=== PATIENT | male | born 2000 | race Caucasian/White ===

== ENCOUNTER 2019-11-17 17:30 | Emergency (ER) | payer OTHER ==
[2019-11-17] MEDS ORDERED: Sodium Chloride 0.9% 1,000 ML IV ONE ×2 (17:42→21:35)
[2019-11-17] MEDS ORDERED: Sodium Chloride 0.9% 10 ML Syringe FLUSH PRN (17:42)
--- NOTE | 2019-11-17 17:46 | EDM.PDOC ---
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 Driving back to the [facility] had food and maintained some intake with fluid. Arrived in [place] [address] again and shortly thereafter while driving home experienced emesis. States minimal insulin use over the weekend as he was very active on [employer] 8 to 10 hours/day. Acknowledges beverages, along with heat that may have contributed to dehydration. Blood sugars have been slightly higher today as he needs to change his pump site which was done after his arrival in the emergency department. Denies any extraneous food or drinks that may have precipitated nausea vomiting. Has had no exposures to illness that he is aware of. 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 Associated tachycardia and breathing issue stating he could not catch his breath along with mild abdominal discomfort attributed to nausea and emesis. Bowel movement x2 today which she states was normal states his urine has been clear. 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 Chest Pain Score (Numeric/FACES): 4 Abdomen Pain Score (Numeric/FACES): 2 - Related Data Allergies Allergy/AdvReac Type Severity Reaction Status Date / Time No Known Allergies Allergy Verified 11/17/19 18:07 Past Medical History Cardiovascular History: Reports: None Respiratory History: Reports: None Gastrointestinal History: Reports: None Endocrine/Metabolic History: Reports: Diabetes, Type I 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 Type of Insulin Used in Pump: Novalog When was Your Last Insulin Site/Set Changed: Now after arrival in ED Do You Have Enough Pump Supplies for Your Hospital Stay: Yes Who Manages Your Pump: Patient (Self) Who Medically Manages Your Pump (Provider): Colt German Basal Rate (Units/hr): Basal Rate (Time/Rate)Midnight 2.00 Units of Insulin Per Gram of Carbohydrates:: 3 Do You Give Correction Boluses or Sliding Scale: Yes Patient/Family Able to Supply Written Copy of Sliding Scale: Yes Hematologic History: Reports: None Immunologic History: Reports: None Oncologic (Cancer) History: Reports: None Dermatologic History: Reports: None - Past Surgical History Head Surgeries/Procedures: Reports: None HEENT Surgical History: Reports: None Cardiovascular Surgical History: Reports: None Respiratory Surgical History: Reports: None GI Surgical History: Reports: None Female Surgical History: Reports: None Male Surgical History: Reports: None Endocrine Surgical History: Reports: None Neurological Surgical History: Reports: None Musculoskeletal Surgical History: Reports: None Oncologic Surgical History: Reports: None Dermatological Surgical History: Reports: None - Past Imaging History Past Imaging History: Reports: MRI, Xray Social & Family History - Family History Family Medical History: Noncontributory - Tobacco Use Smoking Status *Q: Never Smoker Tobacco Use Within Last Twelve Months: Snuff/Dip Used Tobacco, but Quit: No Second Hand Smoke Exposure: No Second Hand Smoke Education Provided: No - Tobacco Core Measures Smokeless Tobacco Use History: Snuff/Dip - Caffeine Use Caffeine Use: Reports: Soda - Alcohol Use Alcohol Use History: Yes Alcohol Use Frequency: Rarely - Recreational Drug Use Recreational Drug Use: No ED ROS GENERAL - Review of Systems Review Of Systems: See Below Constitutional: Reports: No Symptoms HEENT: Reports: No Symptoms Respiratory: Reports: Shortness of Breath Cardiovascular: Reports: Dyspnea on Exertion Endocrine: Reports: High Glucose GI/Abdominal: Reports: Nausea, Vomiting : Reports: No Symptoms Musculoskeletal: Reports: Neck Pain (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), Shoulder Pain (Exacerbation of chronic) Skin: Reports: No Symptoms Neurological: Reports: No Symptoms Psychiatric: Reports: No Symptoms Hematologic/Lymphatic: Reports: No Symptoms Immunologic: Reports: No Symptoms ED EXAM, GENERAL - Physical Exam Exam: See Below General Appearance: Alert, WD/WN, No Apparent Distress, Anxious Ears: Normal External Exam, Normal Canal, Hearing Grossly Normal, Normal TMs Nose: Normal Inspection, Normal Mucosa, No Blood Throat/Mouth: Normal Inspection, Normal Lips, Normal Teeth, Normal Gums, Normal Oropharynx, Normal Voice, No Airway Compromise Head: Atraumatic, Normocephalic Neck: Normal Inspection, Supple, Full Range of Motion, Tender Lateral Respiratory/Chest: Lungs Clear, Normal Breath Sounds, Chest Non-Tender Cardiovascular: Normal Peripheral Pulses, Regular Rate, Rhythm, No Edema, No Gallop, No JVD, No Murmur, No Rub, Tachycardia GI/Abdominal: Normal Bowel Sounds, Soft, Distended (Tension at his chronically used insulin pump sites left and right lower abdomen), Rebound, Tender. No: Guarding, Rigid (Male) Exam: Deferred Rectal (Males) Exam: Deferred Back Exam: Full Range of Motion Extremities: Normal Inspection, Normal Range of Motion, Non-Tender, No Pedal Edema Neurological: Alert, Oriented, CN II-XII Intact, Normal Cognition, Normal Gait, Normal Reflexes, No Motor/Sensory Deficits Psychiatric: Normal Affect, Normal Mood Skin Exam: Warm, Dry, Intact, Normal Color, No Rash EKG INTERPRETATION EKG Date: 11/17/19 Time: 17:45 Rhythm: NSR Rate (Beats/Min): 119 [place]: Normal P-Wave: Present QRS: Normal ST-T: Normal QT: Normal Comparison: NA - No Prior EKG EKG Interpretation Comments: Sinus tachycardia with no evidence of infarct nor ischemia Course - Vital Signs Last Recorded V/S: Last Vital Signs Temp 36.4 C 11/17/19 17:57 Pulse 125 H 11/17/19 17:57 Resp 26 H 11/17/19 17:57 BP 153/59 H 11/17/19 17:57 Pulse Ox 97 11/17/19 17:57 - Orders/Labs/Meds Orders: Active Orders 24 hr Category Date Time Status Blood Glucose Check, Bedside [RC] ONETIME Care 11/17/19 18:54 Ordered Blood Glucose Check, Bedside [RC] ONETIME Care 11/17/19 19:29 Ordered EKG Documentation Completion [RC] ASDIRECTED Care 11/17/19 17:40 Ordered Peripheral IV Care [RC] . DIRECTED Care 11/17/19 17:42 Active Abdomen Pelvis w Cont [CT] Stat Exams 11/17/19 18:31 Ordered Sodium Chloride 0.9% [Normal Saline] 50 ml Med 11/17/19 18:45 Active IV ASDIRECTED Sodium Chloride 0.9% [Saline Flush] Med 11/17/19 17:42 Ordered 10 ml FLUSH Q8HR PRN Peripheral IV Insertion Adult [OM.PC] Routine Oth 11/17/19 17:42 Ordered EKG 12 Lead [EK] Stat Ther 11/17/19 17:40 Ordered Medication Orders Sodium Chloride (Normal Saline) 50 mls @ 200 mls/min IV ASDIRECTED DWAINE Sodium Chloride (Saline Flush) 10 ml FLUSH Q8HR PRN PRN Reason: keep vein open Labs: Laboratory Tests 11/17/19 11/17/19 11/17/19 Range/Units 15:30 15:30 18:40 WBC 17.59 H (5.00-10.00) 10^3/uL RBC 5.52 (4.50-6.00) 10^6/uL Hgb 16.0 (13.0-17.0) g/dL Hct 47.7 (40.0-52.0) % MCV 86.4 (82.0-92.0) fL MCH 29.0 (27.0-31.0) pg MCHC 33.5 (32.0-36.0) g/dL RDW 12.0 (11.5-14.5) % Plt Count 418 H (150-400) 10^3/uL MPV 10.4 (7.4-10.4) fL Immature Gran % (Auto) 0.7 (0.0-5.0) % Neut % (Auto) 79.0 H (50.0-70.0) % Lymph % (Auto) 12.4 L (20.0-40.0) % [place] % (Auto) 7.0 (2.0-8.0) % Eos % (Auto) 0.3 L (1.0-3.0) % Baso % (Auto) 0.6 (0.0-1.0) % Neut # (Auto) 13.89 H (2.50-7.00) 10^3/uL Lymph # (Auto) 2.18 (1.00-4.00) 10^3/uL [place] # (Auto) 1.24 H (0.10-0.80) 10^3/uL Eos # (Auto) 0.05 L (0.10-0.30) 10^3/uL Baso # (Auto) 0.10 (0.00-0.10) 10^3/uL Immature Gran # (Auto) 0.13 (0.00-0.50) 10^3/uL Sodium 129 L (136-145) mmol/L Potassium 5.1 (3.3-5.3) mmol/L Chloride 90 L (98-115) mmol/L Carbon Dioxide 10.3 L (21.0-32.0) mmol/L Anion Gap 33.8 H (5-15) mmol/L BUN 17 (6-25) mg/dL Creatinine 1.06 (0.51-1.17) mg/dL Est Cr Clr Drug Dosing 122.01 mL/min Estimated GFR (MDRD) > 60 mL/min Glucose 550 H (75 - 99) mg/dL Calcium 9.2 (8.7-10.3) mg/dL Total Bilirubin 1.5 H (0.2-1.0) mg/dL AST 17 (15-37) U/L ALT 27 (12-78) U/L Alkaline Phosphatase 133 H (46-116) IU/L Creatine Kinase 123 (26-276) U/L CK-MB (CK-2) 1.00 (0.00-4.30) ng/mL Troponin I 0.07 (0.00-0.070) ng/mL Total Protein 8.4 H (6.4-8.2) g/dL Albumin 4.45 (3.00-4.80) g/dL Amylase 36 (25-125) U/L Lipase 29 L (73-393) U/L Specimen Type . Urine Color Light yellow (YELLOW) Urine Appearance Clear (CLEAR) Urine pH 5.0 (5.0-9.0) Ur Specific [place] >= 1.030 (1.005-1.030) Urine Protein 30 H (NEGATIVE) mg/dL Urine Glucose (UA) 500 H (NEGATIVE) mg/dL Urine Ketones >=160 H (NEGATIVE) mg/dL Urine Occult Blood Trace-lysed H (NEGATIVE) Urine Nitrite Negative (NEGATIVE) Urine Bilirubin Negative (NEGATIVE) Urine Urobilinogen 0.2 (0.2-1.0) E.U./dL Ur Leukocyte Esterase Negative (NEGATIVE) Urine RBC 0-5 (0-5) /HPF Urine WBC 0-5 (0-5) /HPF Ur Epithelial Cells Occasional /LPF Urine Bacteria Rare (NONE TO FEW) /HPF Ethyl Alcohol < 3 (NONE DETECTED) mg/dL Meds: Medications Generic Name Dose Route Start Last Admin Trade Name Santiago PRN Reason Stop Dose Admin Sodium Chloride 50 mls @ 200 mls/min 11/17/19 18:45 Normal Saline IV ASDIRECTED DWAINE Sodium Chloride 10 ml 11/17/19 17:42 Saline Flush FLUSH Q8HR PRN keep vein open Discontinued Medications Generic Name Dose Route Start Last Admin Trade Name Santiago PRN Reason Stop Dose Admin Sodium Chloride 1,000 mls @ 999 mls/hr 11/17/19 17:42 11/17/19 17:45 Normal Saline IV 11/17/19 18:42 999 mls/hr .BOLUS ONE Administration Meropenem 1 gm/ Sodium 100 mls @ 200 mls/hr 11/17/19 18:45 11/17/19 19:20 Chloride IV 11/17/19 19:14 200 mls/hr ONETIME ONE Administration Insulin Human Regular 15 unit 11/17/19 18:34 11/17/19 18:44 Humulin R IV 11/17/19 18:35 15 units ONETIME ONE Administration Insulin Human Regular 15 unit 11/17/19 19:31 Humulin R IV 11/17/19 19:32 ONETIME ONE Iopamidol 100 ml 11/17/19 18:42 Isovue-370 (76%) IV 11/17/19 18:43 ONETIME ONE Ondansetron HCl 8 mg 11/17/19 18:38 11/17/19 19:15 Zofran IVPUSH 11/17/19 18:39 8 mg ONETIME ONE Administration - Re-Assessments/Exams Free Text/Narrative Re-Assessment/Exam: 11/17/19 18:43 After receiving some IV fluid and returning from x-ray abdomen was reexamined to find more accurate right lower quadrant pain with rebound tenderness. Advised the likelihood of acute appendicitis and would be performing CT with IV contrast. Will provide medication for nausea at this time continuing fluids 1 g meropenem will be implemented with a significant elevation in his white count with abdominal discomfort. Free Text/Narrative Re-Assessment/Exam: 11/17/19 20:15 CT abdomen pelvis with IV contrast returns negative with no evidence of appendicitis. Case was discussed with Maxi Garcia, after discussion with Harish and his mother over the fact CT was negative for acute appendicitis. 3 is coverage of antibiotic and insulin for improvement of blood sugars with IV fluids as appropriate and will be admitting. Repeat glucose at this time was 294. Departure - Departure Time of Disposition: 20:19 Disposition: Admitted As Inpatient 65 Condition: Good Clinical Impression: Elevated glucose level, Nausea, Right lower quadrant abdominal pain, Tachycardia, Electrolyte abnormality, Glucosuria - Discharge Information *PRESCRIPTION DRUG MONITORING PROGRAM REVIEWED*: Not Applicable *COPY OF PRESCRIPTION DRUG MONITORING REPORT IN PATIENT STEPHEN: Not Applicable Forms: ED Department Discharge Sepsis Event Note (ED) - Focused Exam Vital Signs: Vital Signs Temp Pulse Resp BP Pulse Ox 11/17/19 17:57 36.4 C 125 H 26 H 153/59 H 97 ED Communication - ED Communication Date/Time Date: 11/17/19 Time Called: 20:05 - Discussed Case With (1) Discussed Case With (1): Admitting Provider Person/s Notified (1): Swapna Reed (agrees to admission) - Conversation Summary Admitting Provider Agreed to Patient's Admission: Yes - Problem List & Annotations (1) Tachycardia SNOMED Code(s): 3767777 Code(s): R00.0 - TACHYCARDIA, UNSPECIFIED Status: Acute (2) Nausea SNOMED Code(s): 272914790 Code(s): R11.0 - NAUSEA Status: Acute (3) Elevated glucose level SNOMED Code(s): 79803397 Code(s): R73.09 - OTHER ABNORMAL GLUCOSE Status: Acute (4) SOB (shortness of breath) on exertion SNOMED Code(s): 64088358 Code(s): R06.02 - SHORTNESS OF BREATH Status: Acute (5) Right lower quadrant abdominal pain SNOMED Code(s): 859147465 Code(s): R10.31 - RIGHT LOWER QUADRANT PAIN Status: Acute (6) Electrolyte abnormality SNOMED Code(s): 106995023 Code(s): E87.8 - OTH DISORDERS OF ELECTROLYTE AND FLUID BALANCE, NEC Status : Acute Priority: High (7) Glucosuria SNOMED Code(s): 24952648 Code(s): R81 - GLYCOSURIA Status: Acute Priority: High - Problem List Review Problem List Initiated/Reviewed/Updated: Yes - My Orders Last 24 Hours: My Active Orders 11/17/19 17:40 EKG Documentation Completion [RC] ASDIRECTED EKG 12 Lead [EK] Stat 11/17/19 17:42 Peripheral IV Care [RC] . DIRECTED Sodium Chloride 0.9% [Saline Flush] 10 ml FLUSH Q8HR PRN Peripheral IV Insertion Adult [OM.PC] Routine 11/17/19 18:31 Abdomen Pelvis w Cont [CT] Stat 11/17/19 18:45 Sodium Chloride 0.9% [Normal Saline] 50 ml IV ASDIRECTED 11/17/19 18:54 Blood Glucose Check, Bedside [RC] ONETIME 11/17/19 19:29 Blood Glucose Check, Bedside [RC] ONETIME - Assessment/Plan Last 24 Hours: My Active Orders 11/17/19 17:40 EKG Documentation Completion [RC] ASDIRECTED EKG 12 Lead [EK] Stat 11/17/19 17:42 Peripheral IV Care [RC] . DIRECTED Sodium Chloride 0.9% [Saline Flush] 10 ml FLUSH Q8HR PRN Peripheral IV Insertion Adult [OM.PC] Routine 11/17/19 18:31 Abdomen Pelvis w Cont [CT] Stat 11/17/19 18:45 Sodium Chloride 0.9% [Normal Saline] 50 ml IV ASDIRECTED 11/17/19 18:54 Blood Glucose Check, Bedside [RC] ONETIME 11/17/19 19:29 Blood Glucose Check, Bedside [RC] ONETIME
[2019-11-17 18:15] LABS: ANION GAP 33.8 mmol/L (5-15); CHLORIDE,CL 90 mmol/L (98-115); SODIUM,NA 129 mmol/L (136-145)
[2019-11-17] MEDS ORDERED: Insulin Regular, Human 100 Units/ML 10 ML Vial IV ONE ×2 (18:34→19:31)
[2019-11-17] MEDS ORDERED: Ondansetron 4 MG/2 ML SDV IVPUSH ONE (18:38)
[2019-11-17] MEDS ORDERED: Iopamidol 755 Mg/ML 100 ML Bottle IV ONE (18:42)
[2019-11-17] MEDS ORDERED: Meropenem 1 GM in Sodium Chloride 0.9% 100 ML IV ONE (18:45)
[2019-11-17] MEDS ORDERED: Sodium Chloride 0.9% 50 ML IV SCH (18:45)
--- NOTE | 2019-11-17 18:56 | CR ---
[id number] RAD/RAD Abdomen Upright Exam: RAD Abdomen Upright Clinical Data: VOMITING COMPARISON: NO PREVIOUS SIMILAR EXAM IS AVAILABLE FINDINGS: There is no bowel obstruction or free air There is no organomegaly or pathologic calcification IMPRESSION: NO ACUTE PLAIN FILM ABNORMALITY Osmar Calderon MD 11/17/19 9611 Thank you for allowing us to participate in the care of your patient.
--- NOTE | 2019-11-17 18:58 | CR ---
[id number] RAD/RAD Chest PA And Lateral EXAM: RAD Chest PA And Lateral CLINICAL DATA: SHORTNESS OF BREATH COMPARISON: NO PREVIOUS SIMILAR EXAM IS AVAILABLE. FINDINGS: The lungs are clear There is peribronchial thickening There are minimal wedge deformities of the thoracic spine The cardiac silhouette is normal IMPRESSION: NO ACUTE PROCESS. Osmar Calderon MD 11/17/19 [id number] Thank you for allowing us to participate in the care of your patient.
--- NOTE | 2019-11-17 19:47 | CT ---
[id number] CT/CT Abdomen Pelvis W IV EXAM: CT Abdomen Pelvis W IV CLINICAL DATA: RIGHT LOWER QUADRANT PAIN ELEVATED WHITE BLOOD CELL COUNT COMPARISON: No previous similar exam is available. FINDINGS: The liver and spleen are unremarkable. The kidneys and adrenals show no abnormality. The aorta and pancreas are within normal limits. There is no bowel distention. There is no bowel wall thickening either. There is no free fluid or free air. There is no adenopathy. The pelvis shows no mass, free fluid, abscess, inflammatory change, or adenopathy. IMPRESSION: NO EVIDENCE OF APPENDICITIS Osmar Calderon MD 11/17/19 1946 Thank you for allowing us to participate in the care of your patient.
[2019-11-17 22:00] LABS: O2 DELIVERY DEVICE ROOM AIR
[2019-11-17 22:01] LABS: PCO2 ARTERIAL 16 mmHG (35-45); PO2 ARTERIAL 116 mmHG (80-105)
[2019-11-17 22:02] LABS: BASE EXCESS ARTERIAL -19 mmol/L (-2-3); BICARBONATE,ARTERIAL 7.6 mmol/L (22-26); O2 SATURATION ARTERIAL 98 % (95-98)
[2019-11-17 22:18] LABS: ANION GAP 32.6 mmol/L (5-15); CHLORIDE,CL 98 mmol/L (98-115); SODIUM,NA 136 mmol/L (136-145)
== END 2019-11-17 22:50 | disposition critical access hospital (66) ==
LOC: KA.ED 17:30 → UNDOADMOB 20:20 → KA.MS 20:20 → UNDOADMOB 20:32
DX: E10.65 Type 1 diabetes mellitus with hyperglycemia (principal); R00.0 Tachycardia, unspecified; R81 Glycosuria; R10.31 Right lower quadrant pain; E87.8 Other disorders of electrolyte and fluid balance, not elsewhere classified; F17.290 Nicotine dependence, other tobacco product, uncomplicated
CPT/HCPCS: 36415; 36600; 71046; 74021; 74177; 80048; 80053; 80307; 81001; 82150; 82550; 82553; 82803; 82962; 83690; 84484; 85025; 93005; 96361; 96365; 96375; 99285-25; J2185; J2405; J7030; J7050; Q9967

== ENCOUNTER 2020-11-29 13:05 | Emergency (ER) | payer OTHER ==
--- NOTE | 2020-11-29 13:27 | EDM.PDOC ---
ED HPI GENERAL MEDICAL PROBLEM - General Chief Complaint: Skin Complaint Stated Complaint: SWALLOWED HYDRAULIC FLUID Time Seen by Provider: 11/29/20 13:23 Source of Information: Reports: Patient History Limitations: Reports: No Limitations - History of Present Illness INITIAL COMMENTS - FREE TEXT/NARRATIVE: Harish, 20-year-old male, today while plugging in an apparatus to his tractor which had no reason for pressure, pushed out to hydraulic fluid onto his body, his face, some of which got in his mouth. Has had no other injuries and was not in a pressure/high pressure situation causing any penetration. Topical exposure only. Denies any other injuries. 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 Hematologic History: Reports: None Immunologic History: Reports: None Oncologic (Cancer) History: Reports: None Dermatologic History: Reports: None - Past Surgical History Head Surgeries/Procedures: Reports: None HEENT Surgical History: Reports: None Cardiovascular Surgical History: Reports: None Respiratory Surgical History: Reports: None GI Surgical History: Reports: None Female Surgical History: Reports: None Male Surgical History: Reports: None Endocrine Surgical History: Reports: None Neurological Surgical History: Reports: None Musculoskeletal Surgical History: Reports: None Oncologic Surgical History: Reports: None Dermatological Surgical History: Reports: None - Past Imaging History Past Imaging History: Reports: MRI, Xray Social & Family History - Family History Family Medical History: No Pertinent Family History - Tobacco Use Tobacco Use Status *Q: Current Every Day Tobacco User Tobacco Use Within Last Twelve Months: Smokeless Tobacco - Caffeine Use Caffeine Use: Reports: Soda ED ROS GENERAL - Review of Systems Review Of Systems: Comprehensive ROS is negative, except as noted in HPI. ED EXAM, GENERAL - Physical Exam Exam: See Below Free Text/Narrative:: Alert, oriented, in no distress. Her strong odor of hydraulic fluid to him and some noted to his clothing. He is clean his face and there shows no skin irritation no oral irritation. He is able to speak with no difficulty. Thorax is clear no wheezes no crackles. Cardiac is regular. Hydraulic fluid exposure topical and slightly oral was discussed with poison control, Uzma is the engineering equipment operator who reassures me that there is no high risk with this and there may be some GI irritation secondary of oil ingestion. Course - Vital Signs Last Recorded V/S: Last Vital Signs Temp 98.3 F 11/29/20 13:36 Pulse 94 11/29/20 13:36 Resp 18 11/29/20 13:36 BP 136/81 11/29/20 13:36 Pulse Ox 95 11/29/20 13:36 Departure - Departure Time of Disposition: 13:44 Disposition: Home, Self-Care 01 Condition: Good Clinical Impression: Ingestion of foreign material - Discharge Information *PRESCRIPTION DRUG MONITORING PROGRAM REVIEWED*: Not Applicable *COPY OF PRESCRIPTION DRUG MONITORING REPORT IN PATIENT STEPHEN: Not Applicable Referrals: Myrna Byrd DIRECTOR PROSPECT [Primary Care Provider] - Forms: ED Department Discharge Additional Instructions: Contact with poison control states no significant risk for the amount you had in your mouth and swallowed. Do not eat anything that disagrees with you, spicy food, high carbonation. You need to shower and get into clean clothing as soon as possible to remove any of the further residual from your body. Make sure you drink plenty of fluids, remaining hydrated, and eat well-balanced meals. Follow-up as needed or return to the emergency department if significant concerns develop. Sepsis Event Note (ED) - Focused Exam Vital Signs: Vital Signs Temp Pulse Resp BP Pulse Ox 11/29/20 13:36 98.3 F 94 18 136/81 95 - Problem List & Annotations (1) Ingestion of foreign material SNOMED Code(s): 18572290 Code(s): T18.9XXA - FOREIGN BODY OF ALIMENTARY TRACT, PART UNSP, INIT ENCNTR Status: Acute Current Visit: Yes Qualifiers: Encounter type: initial encounter Qualified Code(s): T18.9XXA - Foreign body of alimentary tract, part unspecified, initial encounter - Problem List Review Problem List Initiated/Reviewed/Updated: Yes - Assessment/Plan Plan: Contact with poison control states no significant risk for the amount you had in your mouth and swallowed. Do not eat anything that disagrees with you, spicy food, high carbonation. You need to shower and get into clean clothing as soon as possible to remove any of the further residual from your body. Make sure you drink plenty of fluids, remaining hydrated, and eat well-balanced meals. Follow-up as needed or return to the emergency department if significant concerns develop.
== END 2020-11-29 14:00 | disposition home or self-care (01) ==
LOC: KA.ED 13:05
DX: T18.9XXA Foreign body of alimentary tract, part unspecified, initial encounter (principal); E10.9 Type 1 diabetes mellitus without complications; Z72.0 Tobacco use
CPT/HCPCS: 99283

== ENCOUNTER 2020-12-03 22:35 | Emergency (ER) | payer OTHER ==
[2020-12-03] MEDS ORDERED: Sodium Chloride 0.9% 1,000 ML IV ONE ×2 (22:45→23:49)
--- NOTE | 2020-12-03 23:08 | EDM.PDOC ---
ED HPI GENERAL MEDICAL PROBLEM - General Chief Complaint: General Stated Complaint: heat exhaustion Time Seen by Provider: 12/03/20 22:57 Source of Information: Reports: Patient, Family (mom came in later) History Limitations: Reports: No Limitations - History of Present Illness INITIAL COMMENTS - FREE TEXT/NARRATIVE: Patient presents with high glucose, dyspnea and lightheadedness. He was working all morning in the heat but drank over 1/2 gallon of water. Around noon felt lightheaded so went home and slept until 2029. Ate a big pasta meal and forgot to take his Novolog (he has type 1 DM and has an insulin pump). Later he checked his glucose and it was over 500 so dosed 14 units of novolog and came to ER. On arrival still has some dyspnea and nausea. He denies any asthma, smoking, lung problems, heart problems. He drinks alcohol about 3 days/week; doesn't use any street drugs. 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 Hematologic History: Reports: None Immunologic History: Reports: None Oncologic (Cancer) History: Reports: None Dermatologic History: Reports: None - Past Surgical History Head Surgeries/Procedures: Reports: None HEENT Surgical History: Reports: None Cardiovascular Surgical History: Reports: None Respiratory Surgical History: Reports: None GI Surgical History: Reports: None Female Surgical History: Reports: None Male Surgical History: Reports: None Endocrine Surgical History: Reports: None Neurological Surgical History: Reports: None Musculoskeletal Surgical History: Reports: None Oncologic Surgical History: Reports: None Dermatological Surgical History: Reports: None - Past Imaging History Past Imaging History: Reports: MRI, Xray Social & Family History - Family History Family Medical History: No Pertinent Family History - Caffeine Use Caffeine Use: Reports: Energy Drinks, Soda, Tea ED ROS GENERAL - Review of Systems Review Of Systems: See Below Constitutional: Reports: Malaise, Fatigue. Denies: Fever, Chills HEENT: Denies: Ear Pain, Throat Pain, Vision Change Respiratory: Reports: Shortness of Breath. Denies: Cough Cardiovascular: Reports: Chest Pain (felt a little tight), Lightheadedness Endocrine: Reports: High Glucose GI/Abdominal: Reports: Nausea. Denies: Abdominal Pain, Constipation, Diarrhea, Decreased Appetite, Vomiting : Denies: Dysuria, Flank Pain Musculoskeletal: Denies: Neck Pain, Shoulder Pain, Arm Pain, Back Pain, Hand Pain Skin: Denies: Cyanosis, Jaundice, Mottled, Pallor, Diaphoresis Neurological: Denies: Confusion, Dizziness, Headache, Seizure, Syncope, Trouble Speaking, Difficulty Walking Psychiatric: Denies: Agitation, Anxiety, Confusion ED EXAM, GENERAL - Physical Exam Exam: See Below Exam Limited By: No Limitations General Appearance: Alert, WD/WN, No Apparent Distress Eye Exam: Bilateral Eye: EOMI, Normal Inspection, PERRL Ears: Normal External Exam, Hearing Grossly Normal Nose: Normal Inspection, No Blood Throat/Mouth: Normal Inspection, Normal Lips, Normal Voice, No Airway Compromise Head: Atraumatic, Normocephalic Neck: Normal Inspection, Full Range of Motion Respiratory/Chest: No Respiratory Distress, Lungs Clear, Normal Breath Sounds Cardiovascular: Normal Peripheral Pulses, Regular Rate, Rhythm, No Edema, No Murmur GI/Abdominal: Normal Bowel Sounds, Soft, No Organomegaly, No Distention, Tender (mild over low abdomen; non localized). No: Distended, Guarding, Rigid Back Exam: Normal Inspection, Full Range of Motion. No: CVA Tenderness (L), CVA Tenderness (R) Extremities: Normal Inspection, Normal Range of Motion Neurological: Alert, Oriented, Normal Cognition, No Motor/Sensory Deficits Psychiatric: Normal Affect, Normal Mood Skin Exam: Warm, Dry, Intact, Normal Color, No Rash Course - Vital Signs Last Recorded V/S: Last Vital Signs Temp 96.3 F L 12/03/20 22:35 Pulse 89 12/04/20 00:09 Resp 22 H 12/04/20 00:09 BP 123/73 12/04/20 00:09 Pulse Ox 97 12/04/20 00:09 - Orders/Labs/Meds Orders: Active Orders 24 hr Category Date Time Status EKG Documentation Completion [RC] ASDIRECTED Care 12/03/20 23:11 Ordered EKG 12 Lead [EK] Stat Ther 12/03/20 23:10 Ordered Labs: Laboratory Tests 12/03/20 12/03/20 12/04/20 Range/Units 23:00 23:00 00:16 WBC 6.75 D (5.00-10.00) 10^3/uL RBC 5.42 (4.50-6.00) 10^6/uL Hgb 16.0 (13.0-17.0) g/dL Hct 45.9 (40.0-52.0) % MCV 84.7 (82.0-92.0) fL MCH 29.5 (27.0-31.0) pg MCHC 34.9 (32.0-36.0) g/dL RDW 12.1 (11.5-14.5) % Plt Count 267 D (150-400) 10^3/uL MPV 9.7 (7.4-10.4) fL Immature Gran % (Auto) 0.1 (0.0-5.0) % Neut % (Auto) 71.3 H (50.0-70.0) % Lymph % (Auto) 16.0 L (20.0-40.0) % [place] % (Auto) 10.8 H (2.0-8.0) % Eos % (Auto) 1.2 (1.0-3.0) % Baso % (Auto) 0.6 (0.0-1.0) % Neut # (Auto) 4.81 (2.50-7.00) 10^3/uL Lymph # (Auto) 1.08 (1.00-4.00) 10^3/uL [place] # (Auto) 0.73 (0.10-0.80) 10^3/uL Eos # (Auto) 0.08 L (0.10-0.30) 10^3/uL Baso # (Auto) 0.04 (0.00-0.10) 10^3/uL Immature Gran # (Auto) 0.01 (0.00-0.50) 10^3/uL Sodium 136 (136-145) mmol/L Potassium 4.0 (3.5-5.1) mmol/L Chloride 99 (98-107) mmol/L Carbon Dioxide 25.7 (21.0-32.0) mmol/L Anion Gap 15.3 H (5-15) mmol/L BUN 12 (7-18) mg/dL Creatinine 0.79 (0.51-1.17) mg/dL Est Cr Clr Drug Dosing 162.35 mL/min Estimated GFR (MDRD) > 60 mL/min Glucose 414 H (70-140) mg/dL Calcium 8.5 L (8.7-10.3) mg/dL Specimen Type Urinvoid Urine Color Yellow (YELLOW) Urine Appearance Clear (CLEAR) Urine pH 6.5 (5.0-9.0) Ur Specific Hatch 1.015 (1.005-1.030) Urine Protein Negative (NEGATIVE) mg/dL Urine Glucose (UA) >=1000 H (NEGATIVE) mg/dL Urine Ketones Negative (NEGATIVE) mg/dL Urine Occult Blood Negative (NEGATIVE) Urine Nitrite Negative (NEGATIVE) Urine Bilirubin Negative (NEGATIVE) Urine Urobilinogen 0.2 (0.2-1.0) E.U./dL Ur Leukocyte Esterase Negative (NEGATIVE) Meds: Medications Discontinued Medications Generic Name Dose Route Start Last Admin Trade Name Santiago PRN Reason Stop Dose Admin Sodium Chloride 1,000 mls @ 999 mls/hr 12/03/20 22:45 12/03/20 22:54 Normal Saline IV 12/03/20 23:45 999 mls/hr .BOLUS ONE Administration Sodium Chloride 1,000 mls @ 999 mls/hr 12/03/20 23:49 12/03/20 23:55 Normal Saline IV 12/04/20 00:49 999 mls/hr .BOLUS ONE Administration - Re-Assessments/Exams Free Text/Narrative Re-Assessment/Exam: 12/03/20 23:19 WBC normal. EKG shows NSR. 12/04/20 00:56 Elevated glucose in BMP and UA, otherwise normal. His blood glucose has come down nicely and is now at 230 per his monitor. He had dosed the 14 units at 2130 and dosed another 2.5 units (per recommendation of his monitor) around midnight. We discussed findings and treatment plan recommendations. He is feeling a lot better. Discharged to home after two liters of IV saline. Departure - Departure Time of Disposition: 00:52 Disposition: Home, Self-Care 01 Condition: Good Clinical Impression: Hyperglycemia due to type 1 diabetes mellitus Heat exhaustion Qualifiers: Encounter type: initial encounter Qualified Code(s): T67.5XXA - Heat exhaustion, unspecified, initial encounter - Discharge Information Instructions: Preventing Heat Exhaustion, Adult Forms: ED Department Discharge Additional Instructions: Drink plenty of water, especially if out in the sun and heat. Avoid heat and sun as much as possible the next couple days. Monitor your glucose and control as directed by your PCP. Follow up with your PCP if problems persist. If worsening see your PCP or go to ER. Sepsis Event Note (ED) - Focused Exam Vital Signs: Vital Signs Temp Pulse Resp BP Pulse Ox 12/04/20 00:09 89 22 H 123/73 97 12/03/20 23:20 85 14 125/78 98 12/03/20 22:35 96.3 F L 103 H 18 140/81 97 - My Orders Last 24 Hours: My Active Orders 12/03/20 23:10 EKG 12 Lead [EK] Stat 12/03/20 23:11 EKG Documentation Completion [RC] ASDIRECTED - Assessment/Plan Last 24 Hours: My Active Orders 12/03/20 23:10 EKG 12 Lead [EK] Stat 12/03/20 23:11 EKG Documentation Completion [RC] ASDIRECTED
[2020-12-03 23:21] LABS: ANION GAP 15.3 mmol/L (5-15); CHLORIDE,CL 99 mmol/L (98-107); SODIUM,NA 136 mmol/L (136-145)
[2020-12-04 00:10] VITALS: BP 123/73; PULSE 89
== END 2020-12-04 01:15 | disposition home or self-care (01) ==
LOC: KA.ED 22:35
DX: T67.5XXA Heat exhaustion, unspecified, initial encounter (principal); E10.65 Type 1 diabetes mellitus with hyperglycemia
CPT/HCPCS: 36415; 80048; 81003; 85025; 93005; 99285; J7030; 99284

== ENCOUNTER 2022-05-16 22:30 | Emergency (ER) | payer OTHER ==
[2022-05-16] MEDS: Sodium Chloride 0.9% 2,000 ML IV ONE (23:10)
[2022-05-16] MEDS: Sodium Chloride 0.9% 2,000 ML ONE (23:24)
== END 2022-05-17 00:30 | disposition home or self-care (01) ==
LOC: KA.ED 22:30
DX: J95.831 Postprocedural hemorrhage of a respiratory system organ or structure following other procedure (principal); E10.9 Type 1 diabetes mellitus without complications
CPT/HCPCS: 96360; 99283; 99283-25; J7030